=== PATIENT | male | born 1955 | race Asian ===

== ENCOUNTER 2018-01-25 08:59 | Emergency (ER) | payer BC ==
[~2018-01-25] VITALS: Ht 165.1 cm; Wt 79.4 kg
[~2018-01-25 08:59] MED LIST: ASPI-524 PO; CARV3.1246 PO; CLOP75TA2 PO; LEVO100T PO; PRO40 PO; ROSU10TA PO
[2018-01-25 09:04] VITALS: BP_SYST 162
[2018-01-25] MEDS ORDERED: IBUPROFEN 600 MG TABLET PO ONE (09:30)
[2018-01-25] MEDS ORDERED: CYCLOBENZAPRINE HCL 10 MG TABLET (FLEXERIL) PO ONE (09:30)
[2018-01-25] MEDS ORDERED: ACETAMINOPHEN 325 MG TABLET PO ONE (09:30)
[2018-01-25 09:40] VITALS: BP_SYST 147
== END 2018-01-25 09:41 | disposition home or self-care (01) ==
LOC: SED 08:59
DX: M54.2 Cervicalgia (principal); I10 Essential (primary) hypertension; K21.9 Gastro-esophageal reflux disease without esophagitis; Z86.79 Personal history of other diseases of the circulatory system; Z79.899 Other long term (current) drug therapy; Z91.013 Allergy to seafood
CPT/HCPCS: 99284